=== PATIENT | male | born 1995 | race African-American/Black ===

== ENCOUNTER 2019-05-24 13:22 | Emergency (ER) | payer BC ==
[~2019-05-24] VITALS: Ht 188 cm; Wt 70.8 kg
[2019-05-24 14:05] VITALS: BP 144/79
--- NOTE | 2019-05-24 14:05 | NUR ---
ED Nurse Note: pt walked in due to headache that has been going on for 15 years, pt went to mri earlier because of the md advise, pt satetd he is been having a cluster headache, and he was dx when he was a kid, pt denies dizziness. will continue to monitor.
--- NOTE | 2019-05-24 14:41 | Emergency Room Report ---
History of Present Illness General Chief Complaint: Headache Source: Patient Present Illness HPI 24-year-old male presents to the emergency department complaining of 10 out of 10 severity left-sided throbbing/sharp headache that was progressive in nature that began approximately 45 minutes prior to arrival. She states that he has a history of cluster headaches and was [place]. Patient reports that he is now living in [place] and he is in the process of being treated and evaluated by a new neurologist. He reports having a Hx of cluster CROSS x 15 years. No changes in character of CROSS. pt. just had MRI this am. Pt. states was recently prescribed just IBU by the new neurologist and has not had any relief of his symptoms. Pt. denies Photophobia, neck pain/ stiffness, Fevers or chills. Denies head trauma, N/V or hx of neoplastic disease or immune compromise. Pt. states He has his next neurology appointment next week. Denies unilateral weakness or difficulty with speech/swallowing. Denies paresthesias. Allergies: Coded Allergies: PENICILLINS (Verified Allergy, Unknown, 05/24/19) Patient History Past Medical History: see triage record Past Surgical History: none Pertinent Family History: none Reviewed Nursing Documentation: PMH: Agreed; PSxH: Agreed Nursing Documentation-PMH Past Medical History: No Stated History Review of Systems All Other Systems: negative except mentioned in HPI Physical Exam Vital Signs Date Time Temp Pulse Resp B/P (MAP) Pulse Ox O2 Delivery O2 Flow Rate FiO2 05/24/19 13:41 97.7 65 18 144/79 (100) 99 Room Air Sp02 EP Interpretation: reviewed, normal General Appearance: no apparent distress, alert, GCS 15, non-toxic Head: normocephalic, atraumatic Eyes: bilateral eye normal inspection, bilateral eye PERRL ENT: hearing grossly normal, normal voice Neck: full range of motion, no meningismus, no bony tend Respiratory: lungs clear, normal breath sounds, speaking full sentences Cardiovascular #1: regular rate, rhythm Musculoskeletal: back normal, gait/station normal, normal range of motion, non- tender Neurologic: alert, oriented x3, responsive, motor strength/tone normal, sensory intact, normal gait, speech normal, no pronator, grossly normal, distal neuro normal, grossly normal Psychiatric: judgement/insight normal Lymphatic: no adenopathy Medical Decision Making PA Attestation Dr. Winters is my supervising Physician whom patient management has been discussed with. Diagnostic Impression: Primary Impression: Cluster headaches Qualified Codes: G44.019 - Episodic cluster headache, not intractable ER Course 24-year-old male presents to the emergency department complaining of 10 out of 10 severity left-sided throbbing/sharp headache that was progressive in nature that began approximately 45 minutes prior to arrival. She states that he has a history of cluster headaches and was being managed [place] a neurologist [place]. Patient reports that he is now living in [place] and he is in the process of being treated and evaluated by a new neurologist. He reports having a Hx of cluster CROSS x 15 years. No changes in character of CROSS. pt. just had MRI this am. Pt. states was recently prescribed just IBU by the new neurologist and has not had any relief of his symptoms. Pt. denies Photophobia, neck pain/ stiffness, Fevers or chills. Denies head trauma, N/V or hx of neoplastic disease or immune compromise. Pt. states He has his next neurology appointment next week. Denies unilateral weakness or difficulty with speech/swallowing. Denies paresthesias. Ddx considered but are not limited to migraine, SAH, Pseudomotor Cerebri,, Mass lesion, Cluster CROSS, Tension CROSS, Post lumbar puncture CROSS. Vital signs: are WNL, pt. is afebrile H&PE are most consistent with Cluster CROSS, no changes in character from CROSS's he has been experiencing x 15 years. No focal neurological deficits ORDERS: - none required at this time, dx is clinical. ED INTERVENTIONS: - CROSS has resolved on its own here in ED without interventions. -I do not identify an emergent condition at this time. With current presentation , pt. is stable for close outpatient follow up and conservative treatment. D/ w pt. to return promptly to ED with worsening or new symptoms.- Pt. verbalizes' understanding and agreement with proposed treatment plan. DISCHARGE: At this time pt. is stable for d/c to home. Will provide printed patient care instructions, and any necessary prescriptions. Care plan and follow up instructions have been discussed with the patient prior to discharge. Last Vital Signs Date Time Temp Pulse Resp B/P (MAP) Pulse Ox O2 Delivery O2 Flow Rate FiO2 05/24/19 14:05 97.7 68 18 144/79 99 Room Air Disposition: HOME, SELF-CARE Condition: Stable Scripts Acetamin/Butalbital/Caffeine* (FIORICET*) 1 Ea Tab 1 TAB ORAL Q6H, #15 TAB 0 Refills Prov: Inessa Avery 05/24/19 Departure Forms: Return to Work Return to Work Date: May 26, 2019 Work Restrictions: None Other Restrictions: May return Sooner if Symptoms have resolved. Return to Full Activity: May 26, 2019 Patient Instructions: Cluster Headache Additional Instructions: Take medications as directed. Follow up with a Primary Care Provider in 3-5 days For a referral to have NEUROLOGIST Evaluation, even if your symptoms have resolved. --Please review list of primary care clinics, if you do not already have a primary care provider Return sooner to ED if new symptoms occur, or current symptoms become worse. - Please note that this Emergency Department Report was dictated using [employer] technology software, occasionally this can lead to erroneous entry secondary to interpretation by the dictation equipment. Inessa Avery May 24, 2019 14:41
[2019-05-24] MEDS ORDERED: FIORICET1 EA ORAL (14:42)
[2019-05-24 14:55] VITALS: BP 130/78
--- NOTE | 2019-05-24 14:55 | NUR ---
ER DISCHARGE NOTE: Patient is cleared to be discharged per ERMD, pt is aox4, on room air, with stable vital signs. pt was given dc and prescription instructions, pt was able to verbalize understanding, pt id band removed without complications. pt is able to ambulate with steady gait. pt took all belongings.
== END 2019-05-24 14:55 | disposition home or self-care (01) ==
LOC: EMR 14:25
DX: G44.019 Episodic cluster headache, not intractable (principal); Z88.0 Allergy status to penicillin
CPT/HCPCS: 99282